=== PATIENT | female | born 1970 | race Caucasian/White ===

== ENCOUNTER 2019-12-11 12:04 | Emergency (ER) | payer OTHER ==
[~2019-12-11] VITALS: Ht 170.2 cm; Wt 74.0 kg
[2019-12-11] MEDS ORDERED: HYDROmorphone 1 MG/ML, 1ML INJ ONE (12:54)
[2019-12-11] MEDS ORDERED: ONDANSETRON 2MG/ML, 2ML ONE (12:55)
[2019-12-11 13:00] LABS: BASOPHILS # (AUTO) 0.01 x10^3/uL (0-0.1); BASOPHILS % (AUTO) 0 % (0-1); EOSINOPHILS # (AUTO) 0.02 x10^3/uL (0-0.4); EOSINOPHILS % (AUTO) 0 % (1-7); LYMPHOCYTES # (AUTO) 1.09 x10^3/uL (1-3.4); LYMPHOCYTES % (AUTO) 11 % (22-44); MD NO; MEAN CORPUSCULAR HEMOGLOBIN 30.3 pg (27.0-34.8); MEAN CORPUSCULAR HGB CONC 33.3 g/dL (32.4-35.8); MEAN PLATELET VOLUME 8.2 fL (7.4-10.4); MONOCYTES # (AUTO) 0.81 x10^3/uL (0.2-0.8); MONOCYTES % (AUTO) 8 % (2-9); NEUTROPHILS # (AUTO) 7.92 x10^3/uL (1.8-6.8); NEUTROPHILS % (AUTO) 80 % (42-75); PLATELET COUNT 279 x10^3/uL (130-400); RED BLOOD COUNT 4.99 x10^6/uL (3.82-5.3); RED CELL DISTRIBUTION WIDTH 13.6 % (9.6-15.2)
[2019-12-11] MEDS ORDERED: SODIUM CHLORIDE 0.9% 1,000ML IVBOLUS ONE (13:00)
[2019-12-11] MEDS ORDERED: ONDANSETRON 2MG/ML, 2ML IVPush ONE (13:00)
[2019-12-11] MEDS ORDERED: HYDROmorphone 2 MG/ML, 1ML IVPush PRN (13:00)
--- NOTE | 2019-12-11 13:07 | NUR ---
PT WITH C/O ABD PAIN BLQ. STATES FILLS SOME CRAMPING, HURTS TO PUSH ON ABD, NO REBOUND. PT DENIES N/V, STATES SHE HAS NOT HAD ANY DESIRE TO EAT. PT STATES SHE HAS BEEN ABLE TO STAY HYDRATED. PT DENIES URINARY SYMPTOMS. PT STATES SYMPTOMS HAVE BEEN GOING ON SINCE MONDAY PIV INITIATED, PT MEDICATED PER SEP
[2019-12-11 13:10] LABS: ALBUMIN 3.8 g/dL (3.4-5.0); ANION GAP 12 mmol/L (5-15); CALCIUM 9.4 mg/dL (8.5-10.1); CHLORIDE 104 mmol/L (98-107)
[2019-12-11 13:18] LABS: ALANINE AMINOTRANSFERASE 20 U/L (12-78); ALKALINE PHOSPHATASE 79 U/L (45-117); BILIRUBIN,TOTAL 1.4 mg/dL (0.2-1.0); CREATININE 0.97 mg/dL (0.55-1.02); TOTAL PROTEIN 7.9 g/dL (6.4-8.2)
--- NOTE | 2019-12-11 13:43 | NUR ---
HCG RESULTED BORDERLINE, [employer] CONFIRMED WITH ERPROIDER, OK TO PROCEED WITH CT EXAM
[2019-12-11 14:20] VITALS: BP 105/56
--- NOTE | 2019-12-11 14:22 | NUR ---
PT RESTING ON GURNEY AT THIS TIME, APPEARS COMFORTABLE, VISIBLE CHEST RISE AND FALL NOTED, VSS
[2019-12-11 14:25] LABS: MICROSCOPIC INDICATED
[2019-12-11] MEDS ORDERED: OMNIPAQUE 350 MG/ML, 100ML BOTTLE ONE (15:09)
== END 2019-12-11 15:27 | disposition home or self-care (01) ==
LOC: ED 13:21
DX: K57.32 Diverticulitis of large intestine without perforation or abscess without bleeding (principal); R10.32 Left lower quadrant pain
CPT/HCPCS: 36415; 74177; 80053; 81001; 83690; 84703; 85025; 87086; 96374; 96375; 99285; J1170; J2405; J7030; Q9967

== ENCOUNTER → 2020-06-19 | Outpatient (CLI) | payer OTHER | END | disposition home or self-care (01) | LOC: CFH 15:21 | PROVIDERS: ATTEND Nurse Practitioner Family | DX: Z12.31 Encounter for screening mammogram for malignant neoplasm of breast (principal) | CPT/HCPCS: 77063; 77067 ==

== ENCOUNTER → 2021-03-02 | Outpatient (CLI) | payer OTHER ==
[~2021-03-02] MED LIST: OMNIPAQUE 350 MG/ML, 100ML BOTTLE ONE
== END | disposition home or self-care (01) ==
LOC: CFH 11:16
PROVIDERS: ATTEND Nurse Practitioner Family
DX: K82.0 Obstruction of gallbladder (principal); Z87.19 Personal history of other diseases of the digestive system; R10.12 Left upper quadrant pain
CPT/HCPCS: 74160; Q9967